=== PATIENT | male | born 1985 | race Caucasian/White ===

== ENCOUNTER 2017-11-20 20:58 | Emergency (ER) | payer SELFPAY ==
[~2017-11-20] VITALS: Ht 182.9 cm; Wt 78.0 kg
[~2017-11-20 20:58] MED LIST: CEPHALEXIN500 MG OR; CIPRO500 MG PO; FIORICET PO; FLEXERIL PO; FLEXERIL10 MG OR; FLEXERIL10 MG PO; LORTAB 7.5 OR; NAPROSYN500 MG PO; NO HOME MEDS; PROAIR HFA IN; QVAR40 MCG IN; SOLU-MEDROL125 MG IM; ULTRAM50 M1 PO
[2017-11-20] MEDS ORDERED: PERCOCET 5/325M1 TAB PO (23:19)
[2017-11-20] MEDS ORDERED: GENTAMICIN0.31 OU (23:19)
[2017-11-21 00:38] VITALS: BP 140/85
== END 2017-11-21 00:38 | disposition home or self-care (01) | DRG 125 ==
LOC: ED 20:58
DX: H10.33 Unspecified acute conjunctivitis, bilateral (principal); H53.8 Other visual disturbances; H57.13 Ocular pain, bilateral; W89.0XXA Exposure to welding light (arc), initial encounter; Y92.89 Other specified places as the place of occurrence of the external cause

== ENCOUNTER 2018-03-18 23:08 | Emergency (ER) | payer SELFPAY ==
[~2018-03-18] VITALS: Ht 182.9 cm; Wt 80.9 kg
[~2018-03-18 23:08] MED LIST changes: +GENTAMICIN0.31 OU; +PERCOCET 5/325M1 TAB PO
[2018-03-18] MEDS ORDERED: SILVADENE1 % EX (23:50)
[2018-03-18] MEDS ORDERED: TYLENOL # 31 TA1 PO (23:50)
[2018-03-19 00:18] VITALS: BP 126/82
== END 2018-03-19 00:30 | disposition home or self-care (01) | DRG 935 ==
LOC: ED 23:08
PROC: 2W24X4Z Dressing of Chest Wall using Bandage (ICD-10-PCS; principal; 2018-03-18)
PROC: 2W29X4Z Dressing of Left Upper Extremity using Bandage (ICD-10-PCS; 2018-03-18)
PROC: 2W21X4Z Dressing of Face using Bandage (ICD-10-PCS; 2018-03-18)
DX: T21.21XA Burn of second degree of chest wall, initial encounter (principal); T20.19XA Burn of first degree of multiple sites of head, face, and neck, initial encounter; T22.10XA Burn of first degree of shoulder and upper limb, except wrist and hand, unspecified site, initial encounter; F17.210 Nicotine dependence, cigarettes, uncomplicated; X12.XXXA Contact with other hot fluids, initial encounter; Y93.89 Activity, other specified; Y92.009 Unspecified place in unspecified non-institutional (private) residence as the place of occurrence of the external cause

== ENCOUNTER 2018-12-18 19:52 | Inpatient (IN) | payer SELFPAY ==
[~2018-12-18] VITALS: Ht 182.9 cm; Wt 74.0 kg
[~2018-12-18 19:52] MED LIST changes: +SILVADENE1 % EX; +TYLENOL # 31 TA1 PO
[2018-12-18 21:29] LABS: HEMATOCRIT 34.2 % (39.0-50.0); HEMOGLOBIN 12.1 g/dl (14.0-18.0); IMMATURE GRANULOCYTES 0.9 % (0.0-5.0); MEAN CELL VOLUME 91.4 fL CALC (80.0-100.0); MEAN CORPUSCULAR HGB 32.4 pG CALC (26.0-32.0); MEAN CORPUSCULAR HGB CONC 35.4 g/L CALC (32.0-36.0); NEUT# 6.98 thou/uL (1.82-7.42); RED BLOOD COUNT 3.74 mill/uL (4.70-6.10); RED CELL DISTRI WIDTH 11.9 % (11.5-15.5)
[2018-12-18 21:41] LABS: ALBUMIN 3.7 g/dL (3.2-5.0); ALKALINE PHOSPHATASE 79 u/l (38-126); ANION GAP 13 (6-22 (CALC)); BILIRUBIN, TOTAL 0.5 mg/dL (0.0-1.4); BUN 12 mg/dL (9-20); BUN/CREATININE RATIO 18 (12-20 (CALC)); CARBON DIOXIDE 30 mmol/l (22-30); CHLORIDE 98 mmol/l (95-108); CREATININE 0.7 mg/dL (0.7-1.3); GFR > 60 ML/MIN (>=60 (CALC)); GFR FOR AFR.AMER. > 60 ML/MIN (>=60 (CALC)); POTASSIUM 4.2 mmol/l (3.5-5.1); SGOT/AST 74 u/l (17-59); SODIUM 137 mmol/l (137-146); TOTAL PROTEIN 7.3 g/dL (6.3-8.2)
[2018-12-18 23:22] LABS: BARBITURATES NEGATIVE (NEGATIVE); COCAINE NEGATIVE (NEGATIVE); METHADONE NEGATIVE (NEGATIVE); TETRAHYDROCANNABIONOL NEGATIVE (NEGATIVE); TRICYLIC ANTIDEPRESSANTS NEGATIVE (NEGATIVE)
[2018-12-18 23:23] LABS: OXCYCODONE POSITIVE (NEGATIVE)
[2018-12-19] VITALS (11 sets, daily range): BP systolic 126–147; BP diastolic 70–89
[2018-12-19 05:58] LABS: HEMATOCRIT 32.8 % (39.0-50.0); HEMOGLOBIN 11.5 g/dl (14.0-18.0); IMMATURE GRANULOCYTES 0.6 % (0.0-5.0); MEAN CELL VOLUME 93.4 fL CALC (80.0-100.0); MEAN CORPUSCULAR HGB 32.8 pG CALC (26.0-32.0); MEAN CORPUSCULAR HGB CONC 35.1 g/L CALC (32.0-36.0); NEUT# 7.74 thou/uL (1.82-7.42); RED BLOOD COUNT 3.51 mill/uL (4.70-6.10)
[2018-12-19 06:18] LABS: ALBUMIN 3.1 g/dL (3.2-5.0); ALKALINE PHOSPHATASE 71 u/l (38-126); ANION GAP 13 (6-22 (CALC)); BILIRUBIN, TOTAL 0.6 mg/dL (0.0-1.4); BUN 9 mg/dL (9-20); BUN/CREATININE RATIO 15 (12-20 (CALC)); CARBON DIOXIDE 26 mmol/l (22-30); CHLORIDE 102 mmol/l (95-108); CREATININE 0.6 mg/dL (0.7-1.3); GFR > 60 ML/MIN (>=60 (CALC)); GFR FOR AFR.AMER. > 60 ML/MIN (>=60 (CALC)); SGOT/AST 58 u/l (17-59); SODIUM 136 mmol/l (137-146); TOTAL PROTEIN 6.4 g/dL (6.3-8.2)
[2018-12-20 04:49] VITALS: BP 136/85
[2018-12-20 05:31] LABS: HEMATOCRIT 31.9 % (39.0-50.0); MEAN CELL VOLUME 94.4 fL CALC (80.0-100.0); MEAN CORPUSCULAR HGB 32.5 pG CALC (26.0-32.0); MEAN CORPUSCULAR HGB CONC 34.5 g/L CALC (32.0-36.0); RED BLOOD COUNT 3.38 mill/uL (4.70-6.10); RED CELL DISTRI WIDTH 12.2 % (11.5-15.5)
[2018-12-20 05:47] LABS: ANION GAP 13 (6-22 (CALC)); BUN 3 mg/dL (9-20); BUN/CREATININE RATIO 6 (12-20 (CALC)); CARBON DIOXIDE 24 mmol/l (22-30); CHLORIDE 106 mmol/l (95-108); CREATININE 0.5 mg/dL (0.7-1.3); GFR > 60 ML/MIN (>=60 (CALC)); GFR FOR AFR.AMER. > 60 ML/MIN (>=60 (CALC)); MAGNESIUM 1.9 mg/dL (1.6-2.3); SODIUM 139 mmol/l (137-146)
[2018-12-20 08:08] VITALS: BP 121/79
[2018-12-20 17:08] VITALS: BP 140/89
[2018-12-20 18:59] VITALS: BP 119/72
[2018-12-21] VITALS (10 sets, daily range): BP systolic 126–166; BP diastolic 75–102
[2018-12-22 00:01] VITALS: BP 150/90
[2018-12-22 04:13] VITALS: BP 143/81
[2018-12-22 05:33] LABS: HEMATOCRIT 32.6 % (39.0-50.0); HEMOGLOBIN 11.2 g/dl (14.0-18.0); IMMATURE GRANULOCYTES 0.9 % (0.0-5.0); MEAN CORPUSCULAR HGB 32.7 pG CALC (26.0-32.0); MEAN CORPUSCULAR HGB CONC 34.4 g/L CALC (32.0-36.0); NEUT# 5.76 thou/uL (1.82-7.42); RED BLOOD COUNT 3.43 mill/uL (4.70-6.10); RED CELL DISTRI WIDTH 12.2 % (11.5-15.5)
[2018-12-22 05:58] LABS: ALBUMIN 2.9 g/dL (3.2-5.0); ALKALINE PHOSPHATASE 54 u/l (38-126); ANION GAP 11 (6-22 (CALC)); BILIRUBIN, TOTAL 0.4 mg/dL (0.0-1.4); BUN 6 mg/dL (9-20); BUN/CREATININE RATIO 10 (12-20 (CALC)); CARBON DIOXIDE 25 mmol/l (22-30); CHLORIDE 104 mmol/l (95-108); CREATININE 0.6 mg/dL (0.7-1.3); GFR > 60 ML/MIN (>=60 (CALC)); GFR FOR AFR.AMER. > 60 ML/MIN (>=60 (CALC)); MAGNESIUM 1.8 mg/dL (1.6-2.3); SGOT/AST 79 u/l (17-59); SODIUM 136 mmol/l (137-146); TOTAL PROTEIN 6.1 g/dL (6.3-8.2)
[2018-12-22 09:24] VITALS: BP 141/95
[2018-12-22 17:41] VITALS: BP 154/80
[2018-12-22 20:04] VITALS: BP 151/97
[2018-12-23 00:17] VITALS: BP 149/90
[2018-12-23 04:19] VITALS: BP 139/81
== END 2018-12-23 06:40 | disposition left against medical advice (07) | DRG 579 ==
LOC: ED 19:52 → ED-I 22:18 → ED 22:42 → MS2 22:43
PROVIDERS: Emergency Medicine; Internal Medicine Nephrology; Nurse Practitioner Family; Podiatrist Foot & Ankle Surgery; ADMIT Internal Medicine; ATTEND Internal Medicine
PROC: 0J9Q0ZZ Drainage of Right Foot Subcutaneous Tissue and Fascia, Open Approach (ICD-10-PCS; principal; 2018-12-18)
PROC: 0JDQ0ZZ Extraction of Right Foot Subcutaneous Tissue and Fascia, Open Approach (ICD-10-PCS; 2018-12-18)
PROC: 0JQQ0ZZ Repair Right Foot Subcutaneous Tissue and Fascia, Open Approach (ICD-10-PCS; 2018-12-21)
PROC: 02HV33Z Insertion of Infusion Device into Superior Vena Cava, Percutaneous Approach (ICD-10-PCS; 2018-12-21)
PROC: B518ZZA Fluoroscopy of Superior Vena Cava, Guidance (ICD-10-PCS; 2018-12-21)
DX: L02.611 Cutaneous abscess of right foot (principal); M72.6 Necrotizing fasciitis; L03.115 Cellulitis of right lower limb; T79.7XXA Traumatic subcutaneous emphysema, initial encounter; L97.519 Non-pressure chronic ulcer of other part of right foot with unspecified severity; R79.89 Other specified abnormal findings of blood chemistry; T36.0X5A Adverse effect of penicillins, initial encounter; D64.9 Anemia, unspecified; I10 Essential (primary) hypertension; F17.210 Nicotine dependence, cigarettes, uncomplicated; F10.10 Alcohol abuse, uncomplicated; B96.89 Other specified bacterial agents as the cause of diseases classified elsewhere; X58.XXXA Exposure to other specified factors, initial encounter
CPT/HCPCS: J0131; J1650; J3370; Q9967

== ENCOUNTER 2020-04-12 21:41 | Emergency (ER) | payer SELFPAY ==
[~2020-04-12] VITALS: Ht 182.9 cm; Wt 86.0 kg
[2020-04-12 22:48] LABS: HEMATOCRIT 34.7 % (39.0-50.0); HEMOGLOBIN 11.6 g/dl (14.0-18.0); IMMATURE GRANULOCYTES 0.8 % (0.0-5.0); MEAN CELL VOLUME 95.1 fL CALC (80.0-100.0); MEAN CORPUSCULAR HGB 31.8 pG CALC (26.0-32.0); MEAN CORPUSCULAR HGB CONC 33.4 g/dL CAL (32.0-36.0); NEUT# 7.62 thou/uL (1.82-7.42); RED BLOOD COUNT 3.65 mill/uL (4.70-6.10); RED CELL DISTRI WIDTH 13.1 % (11.5-15.5)
[2020-04-12 23:13] LABS: ALKALINE PHOSPHATASE 71 u/l (38-126); ANION GAP 14 (6-22 (CALC)); BILIRUBIN, TOTAL 0.5 mg/dL (0.0-1.4); BUN 11 mg/dL (9-20); BUN/CREATININE RATIO 14 (12-20 (CALC)); CARBON DIOXIDE 24 mmol/l (22-30); CHLORIDE 99 mmol/l (95-108); CREATININE 0.8 mg/dL (0.7-1.3); GFR > 60 ML/MIN (>=60 (CALC)); GFR FOR AFR.AMER. > 60 ML/MIN (>=60 (CALC)); POTASSIUM 4.1 mmol/l (3.5-5.1); SGOT/AST 59 u/l (17-59); SODIUM 133 mmol/l (137-146)
[2020-04-12 23:31] LABS: ALBUMIN 4.1 g/dL (3.2-5.0); TOTAL PROTEIN 7.9 g/dL (6.3-8.2)
[2020-04-12 23:47] VITALS: BP 140/79
[2020-04-13] MEDS ORDERED: KEFLEX500 M1 PO (00:08)
[2020-04-14] MEDS ORDERED: DOXYCYCL HYC100 MG PO (22:25)
[2020-04-14] MEDS ORDERED: VOLTAREN75 MG PO (22:25)
== END 2020-04-13 00:17 | disposition home or self-care (01) | DRG 603 ==
LOC: ED 21:41
PROVIDERS: Family Medicine
DX: L03.113 Cellulitis of right upper limb (principal); F17.210 Nicotine dependence, cigarettes, uncomplicated

== ENCOUNTER 2020-04-14 20:42 | Emergency (ER) | payer SELFPAY ==
[~2020-04-14] VITALS: Ht 182.9 cm; Wt 81.0 kg
[~2020-04-14 20:42] MED LIST changes: +KEFLEX500 M1 PO
[2020-04-14 21:38] LABS: HEMATOCRIT 33.1 % (39.0-50.0); HEMOGLOBIN 11.2 g/dl (14.0-18.0); IMMATURE GRANULOCYTES 0.7 % (0.0-5.0); MEAN CELL VOLUME 94.8 fL CALC (80.0-100.0); MEAN CORPUSCULAR HGB 32.1 pG CALC (26.0-32.0); MEAN CORPUSCULAR HGB CONC 33.8 g/dL CAL (32.0-36.0); NEUT# 6.17 thou/uL (1.82-7.42); RED BLOOD COUNT 3.49 mill/uL (4.70-6.10); RED CELL DISTRI WIDTH 13.2 % (11.5-15.5)
[2020-04-14 21:51] LABS: ALBUMIN 3.8 g/dL (3.2-5.0); ALKALINE PHOSPHATASE 73 u/l (38-126); ANION GAP 14 (6-22 (CALC)); BILIRUBIN, TOTAL 0.2 mg/dL (0.0-1.4); BUN 15 mg/dL (9-20); BUN/CREATININE RATIO 23 (12-20 (CALC)); CARBON DIOXIDE 21 mmol/l (22-30); CHLORIDE 103 mmol/l (95-108); CREATININE 0.7 mg/dL (0.7-1.3); GFR > 60 ML/MIN (>=60 (CALC)); GFR FOR AFR.AMER. > 60 ML/MIN (>=60 (CALC)); POTASSIUM 3.6 mmol/l (3.5-5.1); SGOT/AST 68 u/l (17-59); SODIUM 134 mmol/l (137-146); TOTAL PROTEIN 7.5 g/dL (6.3-8.2)
[2020-04-14 22:01] LABS: ACT PARTIAL THROMBO TIME 25.4 SECONDS (20.0-32.5); PROTHROMBIN TIME 10.2 SECONDS (9.0-12.5)
[2020-04-14] MEDS ORDERED: DOXYCYCL HYC100 MG PO (22:25)
[2020-04-14] MEDS ORDERED: VOLTAREN75 MG PO (22:25)
[2020-04-14 23:04] VITALS: BP 144/68
== END 2020-04-14 23:15 | disposition home or self-care (01) | DRG 603 ==
LOC: ED 20:42
PROVIDERS: Family Medicine
DX: L03.113 Cellulitis of right upper limb (principal); F17.210 Nicotine dependence, cigarettes, uncomplicated

== ENCOUNTER 2020-04-16 21:48 | Emergency (ER) | payer SELFPAY ==
[~2020-04-16] VITALS: Ht 182.9 cm; Wt 86.0 kg
[~2020-04-16 21:48] MED LIST changes: +DOXYCYCL HYC100 MG PO; +VOLTAREN75 MG PO
[2020-04-16 23:17] LABS: HEMATOCRIT 33.7 % (39.0-50.0); HEMOGLOBIN 11.2 g/dl (14.0-18.0); IMMATURE GRANULOCYTES 1.8 % (0.0-5.0); MEAN CELL VOLUME 95.5 fL CALC (80.0-100.0); MEAN CORPUSCULAR HGB 31.7 pG CALC (26.0-32.0); MEAN CORPUSCULAR HGB CONC 33.2 g/dL CAL (32.0-36.0); NEUT# 12.31 thou/uL (1.82-7.42); RED BLOOD COUNT 3.53 mill/uL (4.70-6.10); RED CELL DISTRI WIDTH 13.2 % (11.5-15.5)
[2020-04-16 23:47] LABS: ALBUMIN 3.7 g/dL (3.2-5.0); ALKALINE PHOSPHATASE 66 u/l (38-126); ANION GAP 11 (6-22 (CALC)); BUN 15 mg/dL (9-20); BUN/CREATININE RATIO 30 (12-20 (CALC)); CARBON DIOXIDE 24 mmol/l (22-30); CHLORIDE 98 mmol/l (95-108); CREATININE 0.5 mg/dL (0.7-1.3); GFR > 60 ML/MIN (>=60 (CALC)); GFR FOR AFR.AMER. > 60 ML/MIN (>=60 (CALC)); POTASSIUM 3.4 mmol/l (3.5-5.1); SGOT/AST 51 u/l (17-59); SODIUM 129 mmol/l (137-146); TOTAL PROTEIN 7.5 g/dL (6.3-8.2)
[2020-04-16 23:55] LABS: BILIRUBIN, TOTAL 0.5 mg/dL (0.0-1.4)
[2020-04-17 00:58] VITALS: BP 142/71
== END 2020-04-17 00:58 | disposition left against medical advice (07) | DRG 603 ==
LOC: ED 21:48
PROVIDERS: Family Medicine
DX: L03.113 Cellulitis of right upper limb (principal); F17.200 Nicotine dependence, unspecified, uncomplicated

== ENCOUNTER 2021-06-15 18:16 | Emergency (ER) | payer SELFPAY ==
[~2021-06-15] VITALS: Ht 182.9 cm; Wt 97.0 kg
[2021-06-15 20:32] VITALS: BP 154/87
== END 2021-06-15 20:32 | disposition home or self-care (01) | DRG 605 ==
LOC: ED 18:16
DX: S00.03XA Contusion of scalp, initial encounter (principal); S00.01XA Abrasion of scalp, initial encounter; F17.210 Nicotine dependence, cigarettes, uncomplicated; W22.09XA Striking against other stationary object, initial encounter; Y93.89 Activity, other specified; Y92.89 Other specified places as the place of occurrence of the external cause; Y99.0 Civilian activity done for income or pay

== ENCOUNTER 2021-11-29 14:13 | Emergency (ER) | payer SELFPAY ==
[~2021-11-29] VITALS: Ht 182.9 cm; Wt 115.0 kg
[2021-11-29 14:25] VITALS: BP 153/105
[2021-11-29 15:18] LABS: IMMATURE GRANULOCYTES 0.8 % (0.0-5.0); MEAN CORPUSCULAR HGB 36.4 pG CALC (26.0-32.0); MEAN CORPUSCULAR HGB CONC 33.9 g/dL CAL (32.0-36.0); NEUT# 5.45 thou/uL (1.82-7.42); RED BLOOD COUNT 3.79 mill/uL (4.70-6.10); RED CELL DISTRI WIDTH 12.4 % (11.5-15.5)
[2021-11-29 15:19] LABS: HEMATOCRIT 40.7 % (39.0-50.0); HEMOGLOBIN 13.8 g/dl (14.0-18.0); MEAN CELL VOLUME 107.4 fL CALC (80.0-100.0)
[2021-11-29 15:23] LABS: ALBUMIN 3.9 g/dL (3.2-5.0); ALKALINE PHOSPHATASE 91 u/l (38-126); BUN 3 mg/dL (9-20); BUN/CREATININE RATIO 6 (12-20 (CALC)); CARBON DIOXIDE 27 mmol/l (22-30); CHLORIDE 104 mmol/l (95-108); CREATININE 0.6 mg/dL (0.7-1.3); GFR > 60 ML/MIN (>=60 (CALC)); GFR FOR AFR.AMER. > 60 ML/MIN (>=60 (CALC)); POTASSIUM 3.6 mmol/l (3.5-5.1); TOTAL PROTEIN 8.2 g/dL (6.3-8.2)
[2021-11-29 15:31] VITALS: BP 130/78
[2021-11-29 15:31] LABS: ANION GAP 14 (6-22 (CALC)); BILIRUBIN, TOTAL 0.8 mg/dL (0.0-1.4); SGOT/AST 142 u/l (17-59); SODIUM 141 mmol/l (137-146)
[2021-11-29 15:32] LABS: ETHYL ALCOHOL 373 mg/dl (0-30)
[2021-11-29 16:01] VITALS: BP 132/97
[2021-11-29 16:25] LABS: URINE BILIRUBIN - DIPSTICK NEGATIVE (NEGATIVE); URINE BLOOD DIPSTICK NEGATIVE (NEGATIVE); URINE COLOR YELLOW; URINE GLUCOSE - DIPSTICK NEGATIVE (NEGATIVE); URINE KETONE NEGATIVE (NEGATIVE); URINE LEUK ESTERASE NEGATIVE (NEGATIVE); URINE PROTEIN - DIPSTICK NEGATIVE (NEG-TRACE); URINE UROBILINOGEN - DIPSTICK 0.2 E.U./dL (0.2)
[2021-11-29] MEDS ORDERED: DOXYCYCLINE100 MG PO (16:26)
[2021-11-29 16:27] LABS: URINE NITRITE - DIPSTICK NEGATIVE (Negative)
[2021-11-29 16:31] VITALS: BP 140/85
[2021-11-29] MEDS ORDERED: MEDDOSEPAK PO (16:34)
[2021-11-29 16:48] VITALS: BP 140/85
== END 2021-11-29 16:57 | disposition home or self-care (01) | DRG 603 ==
LOC: ED 14:13
PROVIDERS: Nurse Practitioner
DX: L03.116 Cellulitis of left lower limb (principal); F17.200 Nicotine dependence, unspecified, uncomplicated; F10.129 Alcohol abuse with intoxication, unspecified; Y90.8 Blood alcohol level of 240 mg/100 ml or more

== ENCOUNTER 2021-12-16 14:45 | Observation (INO) | payer SELFPAY ==
[~2021-12-16] VITALS: Ht 182.9 cm; Wt 102.0 kg
[2021-12-16] VITALS (13 sets, daily range): BP systolic 132–178; BP diastolic 83–112
[~2021-12-16 14:45] MED LIST changes: +DOXYCYCLINE100 MG PO; +MEDDOSEPAK PO
[2021-12-16 16:48] LABS: HEMATOCRIT 39.3 % (39.0-50.0); HEMOGLOBIN 13.6 g/dl (14.0-18.0); IMMATURE GRANULOCYTES 0.3 % (0.0-5.0); MEAN CELL VOLUME 104.8 fL CALC (80.0-100.0); MEAN CORPUSCULAR HGB 36.3 pG CALC (26.0-32.0); MEAN CORPUSCULAR HGB CONC 34.6 g/dL CAL (32.0-36.0); NEUT# 6.68 thou/uL (1.82-7.42); RED BLOOD COUNT 3.75 mill/uL (4.70-6.10); RED CELL DISTRI WIDTH 12.9 % (11.5-15.5)
[2021-12-16 17:34] LABS: ACT PARTIAL THROMBO TIME 25.8 SECONDS (20.0-32.5); INTERNATIONAL NORMALIZED RATIO 1.2 RATIO (0.7-1.3); PROTHROMBIN TIME 12.2 SECONDS (9.0-12.5)
[2021-12-16 17:39] LABS: ALBUMIN 4.3 g/dL (3.2-5.0); ALKALINE PHOSPHATASE 95 u/l (38-126); ANION GAP 17 (6-22 (CALC)); BILIRUBIN, TOTAL 0.9 mg/dL (0.0-1.4); BUN 4 mg/dL (9-20); BUN/CREATININE RATIO 7 (12-20 (CALC)); CARBON DIOXIDE 27 mmol/l (22-30); CHLORIDE 105 mmol/l (95-108); CREATININE 0.6 mg/dL (0.7-1.3); GFR > 60 ML/MIN (>=60 (CALC)); GFR FOR AFR.AMER. > 60 ML/MIN (>=60 (CALC)); POTASSIUM 4.3 mmol/l (3.5-5.1); SGOT/AST 167 u/l (17-59); SODIUM 145 mmol/l (137-146); TOTAL PROTEIN 8.1 g/dL (6.3-8.2)
[2021-12-16 17:55] LABS: ETHYL ALCOHOL 317 mg/dl (0-30)
[2021-12-17 04:47] VITALS: BP 160/94
[2021-12-17 05:25] LABS: HEMATOCRIT 38.9 % (39.0-50.0); HEMOGLOBIN 13.4 g/dl (14.0-18.0); MEAN CELL VOLUME 105.7 fL CALC (80.0-100.0); MEAN CORPUSCULAR HGB 36.4 pG CALC (26.0-32.0); MEAN CORPUSCULAR HGB CONC 34.4 g/dL CAL (32.0-36.0); RED BLOOD COUNT 3.68 mill/uL (4.70-6.10); RED CELL DISTRI WIDTH 12.9 % (11.5-15.5)
[2021-12-17 06:06] LABS: ANION GAP 13 (6-22 (CALC)); BUN 4 mg/dL (9-20); BUN/CREATININE RATIO 7 (12-20 (CALC)); CARBON DIOXIDE 27 mmol/l (22-30); CHLORIDE 103 mmol/l (95-108); CREATININE 0.6 mg/dL (0.7-1.3); GFR > 60 ML/MIN (>=60 (CALC)); GFR FOR AFR.AMER. > 60 ML/MIN (>=60 (CALC)); MAGNESIUM 1.6 mg/dL (1.6-2.3); POTASSIUM 3.6 mmol/l (3.5-5.1); SODIUM 139 mmol/l (137-146)
[2021-12-17 09:06] VITALS: BP 172/102
[2021-12-17 10:22] VITALS: BP 160/95
[2021-12-17] MEDS ORDERED: MULTIVITAMI9 PO (11:00)
[2021-12-17 15:22] VITALS: BP 165/102
[2021-12-17 18:56] VITALS: BP 156/91
[2021-12-18 00:20] VITALS: BP 151/92
[2021-12-18 04:40] VITALS: BP 143/93
[2021-12-18 05:16] LABS: HEMATOCRIT 36.5 % (39.0-50.0); HEMOGLOBIN 12.4 g/dl (14.0-18.0); IMMATURE GRANULOCYTES 0.4 % (0.0-5.0); MEAN CELL VOLUME 106.4 fL CALC (80.0-100.0); MEAN CORPUSCULAR HGB 36.2 pG CALC (26.0-32.0); NEUT# 5.6 thou/uL (1.82-7.42); RED BLOOD COUNT 3.43 mill/uL (4.70-6.10); RED CELL DISTRI WIDTH 12.9 % (11.5-15.5)
[2021-12-18 05:44] LABS: ALBUMIN 3.5 g/dL (3.2-5.0); ALKALINE PHOSPHATASE 85 u/l (38-126); ANION GAP 11 (6-22 (CALC)); BUN 4 mg/dL (9-20); BUN/CREATININE RATIO 8 (12-20 (CALC)); CARBON DIOXIDE 25 mmol/l (22-30); CHLORIDE 103 mmol/l (95-108); CREATININE 0.5 mg/dL (0.7-1.3); GFR > 60 ML/MIN (>=60 (CALC)); GFR FOR AFR.AMER. > 60 ML/MIN (>=60 (CALC)); MAGNESIUM 1.5 mg/dL (1.6-2.3); SGOT/AST 80 u/l (17-59); SODIUM 136 mmol/l (137-146); TOTAL PROTEIN 6.9 g/dL (6.3-8.2)
[2021-12-18 05:47] LABS: BILIRUBIN, TOTAL 1.4 mg/dL (0.0-1.4)
[2021-12-18 07:54] VITALS: BP 159/110
== END 2021-12-18 08:51 | disposition left against medical advice (07) | DRG 603 ==
LOC: ED 14:45 → ED-I 17:06 → ED 18:24 → MS2 18:25
PROVIDERS: Nurse Practitioner; ADMIT Internal Medicine; ATTEND Internal Medicine
DX: L03.116 Cellulitis of left lower limb (principal); F10.129 Alcohol abuse with intoxication, unspecified; I10 Essential (primary) hypertension; J41.0 Simple chronic bronchitis; F17.210 Nicotine dependence, cigarettes, uncomplicated
CPT/HCPCS: G0378; J1650; J2060; J3370; J3475

== ENCOUNTER 2022-02-06 17:45 | Emergency (ER) | payer SELFPAY ==
[2022-02-06] VITALS (12 sets, daily range): BP systolic 112–146; BP diastolic 71–96
[~2022-02-06] VITALS: Ht 185.4 cm; Wt 115.0 kg
[~2022-02-06 17:45] MED LIST changes: +MULTIVITAMI9 PO
[2022-02-06 19:02] LABS: HEMATOCRIT 38.4 % (39.0-50.0); HEMOGLOBIN 13.3 g/dl (14.0-18.0); IMMATURE GRANULOCYTES 0.3 % (0.0-5.0); MEAN CELL VOLUME 104.1 fL CALC (80.0-100.0); MEAN CORPUSCULAR HGB CONC 34.6 g/dL CAL (32.0-36.0); NEUT# 6.37 thou/uL (1.82-7.42); RED BLOOD COUNT 3.69 mill/uL (4.70-6.10); RED CELL DISTRI WIDTH 14.9 % (11.5-15.5)
[2022-02-06 19:04] LABS: URINE BLOOD DIPSTICK TRACE-LYSED (NEGATIVE); URINE GLUCOSE - DIPSTICK 250 mg/dL (NEGATIVE); URINE KETONE TRACE mg/dL (NEGATIVE); URINE LEUK ESTERASE NEGATIVE (NEGATIVE); URINE PH 5.5 (4.5-8.0); URINE PROTEIN - DIPSTICK 100 mg/dL (NEG-TRACE); URINE SPECIFIC GRAVITY >=1.030; URINE UROBILINOGEN - DIPSTICK >=8.0 E.U./dL (0.2)
[2022-02-06 19:06] LABS: URINE COLOR AMBER
[2022-02-06 19:08] LABS: URINE BILIRUBIN - DIPSTICK LARGE (NEGATIVE)
[2022-02-06 19:09] LABS: URINE NITRITE - DIPSTICK POSITIVE (Negative)
[2022-02-06 19:17] LABS: URINE BACTERIA RARE hpf; URINE SQUAMOUS EPITHELIAL CELL FEW EPI/hpf (0-FEW)
[2022-02-06 19:23] LABS: ALBUMIN 3.6 g/dL (3.2-5.0); ANION GAP 17 (6-22 (CALC)); BUN 4 mg/dL (9-20); BUN/CREATININE RATIO 6 (12-20 (CALC)); CARBON DIOXIDE 23 mmol/l (22-30); CHLORIDE 104 mmol/l (95-108); CREATININE 0.7 mg/dL (0.7-1.3); GFR FOR AFR.AMER. > 60 ML/MIN (>=60 (CALC)); GFR OTHER RACES > 60 ML/MIN (>=60 (CALC)); LIPASE 371 u/l (23-300); POTASSIUM 3.6 mmol/l (3.5-5.1); SODIUM 141 mmol/l (137-146); TOTAL PROTEIN 8.1 g/dL (6.3-8.2)
[2022-02-06 19:24] LABS: ALKALINE PHOSPHATASE 167 u/l (38-126); BILIRUBIN, TOTAL 2.9 mg/dL (0.0-1.4); SGOT/AST 313 u/l (17-59)
[2022-02-06 19:25] LABS: INTERNATIONAL NORMALIZED RATIO 1.3 RATIO (0.7-1.3); PROTHROMBIN TIME 13.6 SECONDS (9.0-12.5)
[2022-02-07] VITALS (13 sets, daily range): BP systolic 99–145; BP diastolic 55–93
[2022-02-07] MEDS ORDERED: PREVACID30 M3 PO (05:09)
== END 2022-02-07 05:58 | disposition home or self-care (01) | DRG 897 ==
LOC: ED 17:45
PROVIDERS: Family Medicine
DX: F10.10 Alcohol abuse, uncomplicated (principal); F17.200 Nicotine dependence, unspecified, uncomplicated; Y90.6 Blood alcohol level of 120-199 mg/100 ml; Z20.822 Contact with and (suspected) exposure to COVID-19
CPT/HCPCS: J2354; Q9967; S0164

== ENCOUNTER 2022-03-06 16:33 | Emergency (ER) | payer SELFPAY ==
[~2022-03-06] VITALS: Ht 185.4 cm; Wt 109.0 kg
[~2022-03-06 16:33] MED LIST changes: +PREVACID30 M3 PO
[2022-03-06 17:23] LABS: HEMOGLOBIN 12.2 g/dl (14.0-18.0); IMMATURE GRANULOCYTES 0.5 % (0.0-5.0); MEAN CORPUSCULAR HGB CONC 35.9 g/dL CAL (32.0-36.0); NEUT# 6.76 thou/uL (1.82-7.42); RED BLOOD COUNT 3.3 mill/uL (4.70-6.10); RED CELL DISTRI WIDTH 15.2 % (11.5-15.5)
[2022-03-06 17:37] LABS: ALBUMIN 3.4 g/dL (3.2-5.0); ALKALINE PHOSPHATASE 155 u/l (38-126); ANION GAP 16 (6-22 (CALC)); BILIRUBIN, TOTAL 2.2 mg/dL (0.0-1.4); BUN 3 mg/dL (9-20); BUN/CREATININE RATIO 5 (12-20 (CALC)); CARBON DIOXIDE 22 mmol/l (22-30); CHLORIDE 101 mmol/l (95-108); CREATININE 0.5 mg/dL (0.7-1.3); GFR FOR AFR.AMER. > 60 ML/MIN (>=60 (CALC)); GFR OTHER RACES > 60 ML/MIN (>=60 (CALC)); LIPASE 482 u/l (23-300); POTASSIUM 3.3 mmol/l (3.5-5.1); SGOT/AST 136 u/l (17-59); SODIUM 135 mmol/l (137-146); TOTAL PROTEIN 7.9 g/dL (6.3-8.2)
[2022-03-06 17:48] LABS: INTERNATIONAL NORMALIZED RATIO 1.4 RATIO (0.7-1.3); PROTHROMBIN TIME 14.1 SECONDS (9.0-12.5)
[2022-03-06 20:46] VITALS: BP 157/102
== END 2022-03-06 20:54 | disposition short-term general hospital (02) | DRG 445 ==
LOC: ED 16:33
PROVIDERS: Nurse Practitioner
DX: K81.0 Acute cholecystitis (principal); K72.90 Hepatic failure, unspecified without coma; F10.139 Alcohol abuse with withdrawal, unspecified; I10 Essential (primary) hypertension; F19.10 Other psychoactive substance abuse, uncomplicated; F17.200 Nicotine dependence, unspecified, uncomplicated; Z20.822 Contact with and (suspected) exposure to COVID-19
CPT/HCPCS: J2060; Q9967

== ENCOUNTER 2022-08-25 14:43 | Emergency (ER) | payer SELFPAY ==
[~2022-08-25] VITALS: Ht 185.4 cm; Wt 98.8 kg
[2022-08-25] VITALS (9 sets, daily range): BP systolic 101–128; BP diastolic 51–74
[2022-08-25 15:38] LABS: BASO% 0.2 % (0-3); EOS% 1.1 % (0-8); HEMATOCRIT 28.5 % (39.0-50.0); HEMOGLOBIN 11.3 g/dl (14.0-18.0); IMMATURE GRANULOCYTES 4.4 % (0.0-5.0); LYMPH% 6.3 % (15-41); MEAN CORPUSCULAR HGB 37.8 pG CALC (26.0-32.0); MEAN CORPUSCULAR HGB CONC 39.6 g/dL CAL (32.0-36.0); MONO% 14.3 % (2-13); NEUT# 9.02 thou/uL (1.82-7.42); NEUT% 73.7 % (42-76); RED BLOOD COUNT 2.99 mill/uL (4.70-6.10); RED CELL DISTRI WIDTH 15.8 % (11.5-15.5)
[2022-08-25 15:41] LABS: MEAN CELL VOLUME 95.3 fL CALC (80.0-100.0)
[2022-08-25 15:45] LABS: ALBUMIN 3.1 g/dL (3.2-5.0); ALKALINE PHOSPHATASE 123 u/l (38-126); BUN 19 mg/dL (9-20); BUN/CREATININE RATIO 22 (12-20 (CALC)); CHLORIDE 92 mmol/l (95-108); CREATININE 0.9 mg/dL (0.7-1.3); GFR FOR AFR.AMER. > 60 ML/MIN (>=60 (CALC)); GFR OTHER RACES > 60 ML/MIN (>=60 (CALC)); LIPASE 285 u/l (23-300); SGOT/AST 200 u/l (17-59); TOTAL PROTEIN 7.7 g/dL (6.3-8.2)
[2022-08-25 15:55] LABS: SODIUM 128 mmol/l (137-146)
[2022-08-25 15:56] LABS: ANION GAP 9 (6-22 (CALC)); CARBON DIOXIDE 30 mmol/l (22-30)
[2022-08-25 15:57] LABS: BILIRUBIN, TOTAL 19.1 mg/dL (0.0-1.4)
== END 2022-08-25 17:40 | disposition short-term general hospital (02) | DRG 149 ==
LOC: ED 14:43
PROVIDERS: Family Medicine
DX: R42 Dizziness and giddiness (principal); K81.0 Acute cholecystitis; J44.9 Chronic obstructive pulmonary disease, unspecified; F17.210 Nicotine dependence, cigarettes, uncomplicated; K70.30 Alcoholic cirrhosis of liver without ascites; E80.6 Other disorders of bilirubin metabolism; R74.01 Elevation of levels of liver transaminase levels; I10 Essential (primary) hypertension

== ENCOUNTER 2022-09-07 18:28 | Inpatient (IN) | payer SELFPAY ==
[~2022-09-07] VITALS: Ht 185.4 cm; Wt 85.0 kg
[2022-09-07 19:04] VITALS: BP 111/64
[2022-09-07 19:15] VITALS: BP 119/63
[2022-09-07 19:30] VITALS: BP 120/64
[2022-09-07 20:52] LABS: BASO% 0.1 % (0-3); EOS% 7.4 % (0-8); HEMATOCRIT 25.8 % (39.0-50.0); HEMOGLOBIN 9.5 g/dl (14.0-18.0); IMMATURE GRANULOCYTES 3.3 % (0.0-5.0); LYMPH% 11.3 % (15-41); MEAN CELL VOLUME 100.4 fL CALC (80.0-100.0); MEAN CORPUSCULAR HGB CONC 36.8 g/dL CAL (32.0-36.0); MONO% 9.8 % (2-13); NEUT# 13.07 thou/uL (1.82-7.42); NEUT% 68.1 % (42-76); RED BLOOD COUNT 2.57 mill/uL (4.70-6.10)
[2022-09-07 21:07] LABS: ALBUMIN 2.8 g/dL (3.2-5.0); ALKALINE PHOSPHATASE 117 u/l (38-126); AMYLASE 106 u/l (30-110); ANION GAP 8 (6-22 (CALC)); BILIRUBIN, TOTAL 14.9 mg/dL (0.0-1.4); BUN 34 mg/dL (9-20); BUN/CREATININE RATIO 22 (12-20 (CALC)); CARBON DIOXIDE 21 mmol/l (22-30); CHLORIDE 105 mmol/l (95-108); CREATININE 1.5 mg/dL (0.7-1.3); GFR FOR AFR.AMER. > 60 ML/MIN (>=60 (CALC)); GFR OTHER RACES 52 ML/MIN (>=60 (CALC)); LIPASE 375 u/l (23-300); POTASSIUM 3.1 mmol/l (3.5-5.1); SGOT/AST 102 u/l (17-59); SODIUM 131 mmol/l (137-146); TOTAL PROTEIN 7.5 g/dL (6.3-8.2)
[2022-09-07 21:08] LABS: INTERNATIONAL NORMALIZED RATIO 2.1 RATIO (0.7-1.3); PROTHROMBIN TIME 20.5 SECONDS (9.0-12.5)
[2022-09-08] VITALS (12 sets, daily range): BP systolic 89–120; BP diastolic 45–68
[2022-09-08] MEDS ORDERED: FAMOTIDINE20 M1 PO (03:23)
[2022-09-08 09:46] LABS: BASO% 0.1 % (0-3); EOS% 12.5 % (0-8); HEMOGLOBIN 8.1 g/dl (14.0-18.0); IMMATURE GRANULOCYTES 2.5 % (0.0-5.0); LYMPH% 15.7 % (15-41); MEAN CELL VOLUME 100.5 fL CALC (80.0-100.0); MEAN CORPUSCULAR HGB CONC 36.8 g/dL CAL (32.0-36.0); MONO% 10.6 % (2-13); NEUT# 8.29 thou/uL (1.82-7.42); NEUT% 58.6 % (42-76); RED BLOOD COUNT 2.19 mill/uL (4.70-6.10); RED CELL DISTRI WIDTH 16.7 % (11.5-15.5)
[2022-09-08 10:16] LABS: ALKALINE PHOSPHATASE 85 u/l (38-126); ANION GAP 7 (6-22 (CALC)); BILIRUBIN, TOTAL 12.5 mg/dL (0.0-1.4); BUN 31 mg/dL (9-20); BUN/CREATININE RATIO 22 (12-20 (CALC)); CARBON DIOXIDE 20 mmol/l (22-30); CHLORIDE 106 mmol/l (95-108); CREATININE 1.4 mg/dL (0.7-1.3); GFR FOR AFR.AMER. > 60 ML/MIN (>=60 (CALC)); GFR OTHER RACES 56 ML/MIN (>=60 (CALC)); POTASSIUM 3.1 mmol/l (3.5-5.1); SGOT/AST 80 u/l (17-59); SODIUM 129 mmol/l (137-146)
[2022-09-08 10:39] LABS: ALBUMIN 2.1 g/dL (3.2-5.0)
[2022-09-09 00:13] VITALS: BP 116/73
[2022-09-09 04:18] VITALS: BP 106/55
[2022-09-09 06:31] LABS: BASO% 0.2 % (0-3); EOS% 13.6 % (0-8); HEMATOCRIT 21.7 % (39.0-50.0); HEMOGLOBIN 8.5 g/dl (14.0-18.0); IMMATURE GRANULOCYTES 2.1 % (0.0-5.0); LYMPH% 15.1 % (15-41); MEAN CELL VOLUME 100.9 fL CALC (80.0-100.0); MEAN CORPUSCULAR HGB 39.5 pG CALC (26.0-32.0); MEAN CORPUSCULAR HGB CONC 39.2 g/dL CAL (32.0-36.0); MONO% 9.6 % (2-13); NEUT# 8.92 thou/uL (1.82-7.42); NEUT% 59.4 % (42-76); RED BLOOD COUNT 2.15 mill/uL (4.70-6.10); RED CELL DISTRI WIDTH 17.3 % (11.5-15.5)
[2022-09-09 06:53] LABS: ALBUMIN 2.3 g/dL (3.2-5.0); ALKALINE PHOSPHATASE 89 u/l (38-126); ANION GAP 4 (6-22 (CALC)); BILIRUBIN, TOTAL 11.4 mg/dL (0.0-1.4); BUN 26 mg/dL (9-20); BUN/CREATININE RATIO 19 (12-20 (CALC)); CARBON DIOXIDE 19 mmol/l (22-30); CHLORIDE 109 mmol/l (95-108); CREATININE 1.4 mg/dL (0.7-1.3); GFR FOR AFR.AMER. > 60 ML/MIN (>=60 (CALC)); GFR OTHER RACES 56 ML/MIN (>=60 (CALC)); POTASSIUM 3.4 mmol/l (3.5-5.1); SGOT/AST 87 u/l (17-59); SODIUM 128 mmol/l (137-146); TOTAL PROTEIN 6.4 g/dL (6.3-8.2)
[2022-09-09 07:12] VITALS: BP 105/55
[2022-09-09 10:44] VITALS: BP 106/59
[2022-09-09 15:41] VITALS: BP 107/57
[2022-09-09 19:15] VITALS: BP 94/42
[2022-09-10] VITALS (9 sets, daily range): BP systolic 92–129; BP diastolic 48–75
[2022-09-10 06:32] LABS: INTERNATIONAL NORMALIZED RATIO 1.9 RATIO (0.7-1.3); PROTHROMBIN TIME 18.3 SECONDS (9.0-12.5)
[2022-09-10 06:38] LABS: BASO% 0.6 % (0-3); EOS% 13.4 % (0-8); HEMATOCRIT 21.7 % (39.0-50.0); HEMOGLOBIN 7.9 g/dl (14.0-18.0); IMMATURE GRANULOCYTES 1.9 % (0.0-5.0); LYMPH% 16.6 % (15-41); MEAN CELL VOLUME 103.3 fL CALC (80.0-100.0); MEAN CORPUSCULAR HGB 37.6 pG CALC (26.0-32.0); MEAN CORPUSCULAR HGB CONC 36.4 g/dL CAL (32.0-36.0); MONO% 10.2 % (2-13); NEUT% 57.3 % (42-76); RED BLOOD COUNT 2.1 mill/uL (4.70-6.10); RED CELL DISTRI WIDTH 16.8 % (11.5-15.5)
[2022-09-10 06:46] LABS: ALBUMIN 2.4 g/dL (3.2-5.0); ALKALINE PHOSPHATASE 79 u/l (38-126); ANION GAP 7 (6-22 (CALC)); BUN 17 mg/dL (9-20); BUN/CREATININE RATIO 16 (12-20 (CALC)); CARBON DIOXIDE 18 mmol/l (22-30); CHLORIDE 109 mmol/l (95-108); CREATININE 1.1 mg/dL (0.7-1.3); GFR FOR AFR.AMER. > 60 ML/MIN (>=60 (CALC)); GFR OTHER RACES > 60 ML/MIN (>=60 (CALC)); POTASSIUM 3.1 mmol/l (3.5-5.1); SGOT/AST 89 u/l (17-59); SODIUM 131 mmol/l (137-146); TOTAL PROTEIN 6.6 g/dL (6.3-8.2)
[2022-09-11 04:30] VITALS: BP 120/68
[2022-09-11 06:07] LABS: ALBUMIN 2.3 g/dL (3.2-5.0); ALKALINE PHOSPHATASE 81 u/l (38-126); ANION GAP 6 (6-22 (CALC)); BILIRUBIN, TOTAL 9.7 mg/dL (0.0-1.4); BUN 11 mg/dL (9-20); BUN/CREATININE RATIO 13 (12-20 (CALC)); CARBON DIOXIDE 17 mmol/l (22-30); CHLORIDE 113 mmol/l (95-108); CREATININE 0.8 mg/dL (0.7-1.3); GFR FOR AFR.AMER. > 60 ML/MIN (>=60 (CALC)); GFR OTHER RACES > 60 ML/MIN (>=60 (CALC)); POTASSIUM 3.4 mmol/l (3.5-5.1); SGOT/AST 101 u/l (17-59); SODIUM 132 mmol/l (137-146); TOTAL PROTEIN 6.3 g/dL (6.3-8.2)
[2022-09-11 06:12] LABS: BASO% 0.2 % (0-3); EOS% 11.3 % (0-8); HEMATOCRIT 21.5 % (39.0-50.0); HEMOGLOBIN 7.6 g/dl (14.0-18.0); IMMATURE GRANULOCYTES 1.2 % (0.0-5.0); LYMPH% 16.5 % (15-41); MEAN CELL VOLUME 104.4 fL CALC (80.0-100.0); MEAN CORPUSCULAR HGB 36.9 pG CALC (26.0-32.0); MEAN CORPUSCULAR HGB CONC 35.3 g/dL CAL (32.0-36.0); MONO% 9.5 % (2-13); NEUT# 6.65 thou/uL (1.82-7.42); NEUT% 61.3 % (42-76); RED BLOOD COUNT 2.06 mill/uL (4.70-6.10); RED CELL DISTRI WIDTH 16.4 % (11.5-15.5)
[2022-09-11 06:53] VITALS: BP 118/70
[2022-09-11 10:24] VITALS: BP 109/65
[2022-09-11] MEDS ORDERED: LASIX 20 MG TAB20 MG PO (10:33)
[2022-09-11] MEDS ORDERED: ALDACTONE25 MG PO (10:33)
[2022-09-11] MEDS ORDERED: AMOX/K CLAV875 M1 PO (10:35)
[2022-09-11] MEDS ORDERED: TRAMADOL HCL50 MG PO (10:36)
[2022-09-12] MEDS ORDERED: POTASSIUM CHLO20 ME1 PO (00:48)
[2022-09-12] MEDS ORDERED: ANUCORT-HC25 MG RE (00:48)
== END 2022-09-11 13:09 | disposition home or self-care (01) | DRG 434 ==
LOC: ED 18:28 → ED-I 09-08 00:30 → ED 09-08 00:51 → ED-I 09-08 00:52 → MS2 09-08 06:20
PROVIDERS: Emergency Medicine; Nurse Practitioner Family; ADMIT Internal Medicine; ATTEND Internal Medicine
PROC: 0W9G3ZZ Drainage of Peritoneal Cavity, Percutaneous Approach (ICD-10-PCS; principal; 2022-09-10)
DX: K70.31 Alcoholic cirrhosis of liver with ascites (principal); K80.20 Calculus of gallbladder without cholecystitis without obstruction; F10.10 Alcohol abuse, uncomplicated; I10 Essential (primary) hypertension; R16.2 Hepatomegaly with splenomegaly, not elsewhere classified; F17.210 Nicotine dependence, cigarettes, uncomplicated; Z20.822 Contact with and (suspected) exposure to COVID-19
CPT/HCPCS: A9537; J2805; Q9967

== ENCOUNTER 2022-09-11 23:19 | Emergency (ER) | payer SELFPAY ==
[~2022-09-11] VITALS: Ht 185.4 cm; Wt 200.0 kg
[~2022-09-11 23:19] MED LIST changes: +ALDACTONE25 MG PO; +AMOX/K CLAV875 M1 PO; +FAMOTIDINE20 M1 PO; +LASIX 20 MG TAB20 MG PO; +TRAMADOL HCL50 MG PO
[2022-09-11 23:31] VITALS: BP 137/75
[2022-09-11 23:46] VITALS: BP 131/77
[2022-09-12] VITALS: BP 137/79
[2022-09-12 00:06] LABS: BASO% 0.3 % (0-3); EOS% 9.1 % (0-8); HEMATOCRIT 22.6 % (39.0-50.0); HEMOGLOBIN 7.9 g/dl (14.0-18.0); IMMATURE GRANULOCYTES 0.9 % (0.0-5.0); LYMPH% 16.5 % (15-41); MEAN CELL VOLUME 106.1 fL CALC (80.0-100.0); MEAN CORPUSCULAR HGB 37.1 pG CALC (26.0-32.0); MONO% 9.2 % (2-13); NEUT# 8.44 thou/uL (1.82-7.42); RED BLOOD COUNT 2.13 mill/uL (4.70-6.10); RED CELL DISTRI WIDTH 16.2 % (11.5-15.5)
[2022-09-12 00:15] VITALS: BP 125/77
[2022-09-12 00:18] LABS: ACT PARTIAL THROMBO TIME 30.9 SECONDS (20.0-32.5); ALKALINE PHOSPHATASE 103 u/l (38-126); ANION GAP 10 (6-22 (CALC)); BILIRUBIN, TOTAL 10.7 mg/dL (0.0-1.4); BUN 9 mg/dL (9-20); BUN/CREATININE RATIO 10 (12-20 (CALC)); CARBON DIOXIDE 15 mmol/l (22-30); CHLORIDE 113 mmol/l (95-108); CREATININE 0.9 mg/dL (0.7-1.3); ETHYL ALCOHOL 0 mg/dl (0-30); GFR FOR AFR.AMER. > 60 ML/MIN (>=60 (CALC)); GFR OTHER RACES > 60 ML/MIN (>=60 (CALC)); INTERNATIONAL NORMALIZED RATIO 1.9 RATIO (0.7-1.3); PROTHROMBIN TIME 18.6 SECONDS (9.0-12.5); SGOT/AST 106 u/l (17-59); SODIUM 135 mmol/l (137-146)
[2022-09-12 00:20] LABS: ALBUMIN 2.9 g/dL (3.2-5.0); TOTAL PROTEIN 7.9 g/dL (6.3-8.2)
[2022-09-12 00:30] VITALS: BP 121/72
[2022-09-12] MEDS ORDERED: ANUCORT-HC25 MG RE (00:48)
[2022-09-12] MEDS ORDERED: POTASSIUM CHLO20 ME1 PO (00:48)
[2022-09-12 00:55] VITALS: BP 121/72
== END 2022-09-12 01:10 | disposition home or self-care (01) | DRG 395 ==
LOC: ED 23:19
PROVIDERS: Family Medicine
DX: K64.8 Other hemorrhoids (principal); E87.6 Hypokalemia; K70.31 Alcoholic cirrhosis of liver with ascites; K72.10 Chronic hepatic failure without coma; I10 Essential (primary) hypertension; F17.200 Nicotine dependence, unspecified, uncomplicated

== ENCOUNTER 2023-02-11 08:55 | Emergency (ER) | payer OTHER ==
[~2023-02-11] VITALS: Ht 185.4 cm; Wt 89.0 kg
[~2023-02-11 08:55] MED LIST changes: +ANUCORT-HC25 MG RE; +POTASSIUM CHLO20 ME1 PO
[2023-02-11 09:08] VITALS: BP 133/76
[2023-02-11 09:15] VITALS: BP 134/72
[2023-02-11 09:30] VITALS: BP 123/71
[2023-02-11 11:23] VITALS: BP 123/71
== END 2023-02-11 11:24 | disposition home or self-care (01) | DRG 434 ==
LOC: ED 08:55
DX: K70.30 Alcoholic cirrhosis of liver without ascites (principal); I10 Essential (primary) hypertension

== ENCOUNTER 2023-02-15 13:38 | Emergency (ER) | payer OTHER ==
[2023-02-15] VITALS (18 sets, daily range): BP systolic 107–131; BP diastolic 61–76
[~2023-02-15] VITALS: Ht 185.4 cm; Wt 88.7 kg
[2023-02-15 15:02] LABS: EOS% 0.6 % (0-8); HEMOGLOBIN 7.2 g/dl (14.0-18.0); IMMATURE GRANULOCYTES 2.2 % (0.0-5.0); LYMPH% 3.5 % (15-41); MEAN CORPUSCULAR HGB 36.7 pG CALC (26.0-32.0); NEUT# 11.59 thou/uL (1.82-7.42); NEUT% 80.7 % (42-76); RED BLOOD COUNT 1.96 mill/uL (4.70-6.10); RED CELL DISTRI WIDTH 17.1 % (11.5-15.5)
[2023-02-15 15:10] LABS: URINE BLOOD DIPSTICK MODERATE (NEGATIVE); URINE GLUCOSE - DIPSTICK 100 mg/dL (NEGATIVE); URINE KETONE 15 mg/dL (NEGATIVE); URINE LEUK ESTERASE TRACE (NEGATIVE); URINE PH 6.5 (4.5-8.0); URINE PROTEIN - DIPSTICK 100 mg/dL (NEG-TRACE); URINE UROBILINOGEN - DIPSTICK >=8.0 E.U./dL (0.2)
[2023-02-15 15:11] LABS: URINE COLOR DK. YELLOW; URINE NITRITE - DIPSTICK POSITIVE (Negative)
[2023-02-15 15:14] LABS: ALBUMIN 2.6 g/dL (3.2-5.0); POTASSIUM 2.5 mmol/l (3.5-5.1)
[2023-02-15 15:15] LABS: URINE CASTS MANY lpf (NONE-RARE); URINE HYALINE CAST FEW lpf (NONE-RARE); URINE RBC 0-2 RBC/hpf (0-5); URINE SQUAMOUS EPITHELIAL CELL MANY EPI/hpf (0-FEW); URINE WBC 0-2 WBC/hpf (0-5)
[2023-02-15 15:23] LABS: HEMATOCRIT 18.8 % (39.0-50.0); MEAN CELL VOLUME 95.9 fL CALC (80.0-100.0); MEAN CORPUSCULAR HGB CONC 38.3 g/dL CAL (32.0-36.0)
[2023-02-15 15:24] LABS: BILIRUBIN, TOTAL 34.2 mg/dL (0.2-1.3)
[2023-02-15 16:32] LABS: INTERNATIONAL NORMALIZED RATIO 5.2 RATIO (0.7-1.3); PROTHROMBIN TIME 48.4 SECONDS (9.0-12.5)
== END 2023-02-15 18:26 | disposition short-term general hospital (02) | DRG 872 ==
LOC: ED 13:38
PROVIDERS: Family Medicine
PROC: 05HM33Z Insertion of Infusion Device into Right Internal Jugular Vein, Percutaneous Approach (ICD-10-PCS; principal; 2023-02-15)
PROC: 30243N1 Transfusion of Nonautologous Red Blood Cells into Central Vein, Percutaneous Approach (ICD-10-PCS; 2023-02-15)
DX: A41.9 Sepsis, unspecified organism (principal); D68.4 Acquired coagulation factor deficiency; N17.9 Acute kidney failure, unspecified; N39.0 Urinary tract infection, site not specified; D64.9 Anemia, unspecified; I10 Essential (primary) hypertension; R65.20 Severe sepsis without septic shock; E87.6 Hypokalemia; K70.30 Alcoholic cirrhosis of liver without ascites; F10.10 Alcohol abuse, uncomplicated; Z20.822 Contact with and (suspected) exposure to COVID-19
CPT/HCPCS: J3475; P9016

== ENCOUNTER 2023-02-23 17:11 | Emergency (ER) | payer OTHER ==
[~2023-02-23] VITALS: Ht 185.4 cm; Wt 86.1 kg
[2023-02-23 18:00] VITALS: BP 130/72
[2023-02-23 18:15] VITALS: BP 138/80
[2023-02-23 18:30] VITALS: BP 129/72
[2023-02-23] MEDS ORDERED: GENERLAC10 GM/15 M (18:33)
[2023-02-23] MEDS ORDERED: MIDODRINE10 MG PO (18:36)
[2023-02-23] MEDS ORDERED: PENTOXIFYLLI400 M1 PO (18:37)
[2023-02-23] MEDS ORDERED: OXYCODONE5 M1 PO (18:39)
[2023-02-23 18:45] VITALS: BP 128/77
[2023-02-23] MEDS ORDERED: LASIX 20 MG TAB20 MG PO (18:58)
[2023-02-23] MEDS ORDERED: K-TAB20 MEQ PO (18:58)
[2023-02-23 19:00] VITALS: BP 127/68
[2023-02-23 19:01] VITALS: BP 127/68
== END 2023-02-23 19:23 | disposition home or self-care (01) | DRG 921 ==
LOC: ED 17:11
DX: L76.32 Postprocedural hematoma of skin and subcutaneous tissue following other procedure (principal); R60.0 Localized edema; K70.30 Alcoholic cirrhosis of liver without ascites; F10.10 Alcohol abuse, uncomplicated; I10 Essential (primary) hypertension; F17.210 Nicotine dependence, cigarettes, uncomplicated; Y83.8 Other surgical procedures as the cause of abnormal reaction of the patient, or of later complication, without mention of misadventure at the time of the procedure

== ENCOUNTER 2023-03-06 20:07 | Inpatient (IN) | payer OTHER ==
[~2023-03-06] VITALS: Ht 185.4 cm; Wt 100.0 kg
[2023-03-06] VITALS (8 sets, daily range): BP systolic 126–141; BP diastolic 54–78
[~2023-03-06 20:07] MED LIST changes: +GENERLAC10 GM/15 M; +K-TAB20 MEQ PO; +MIDODRINE10 MG PO; +OXYCODONE5 M1 PO; +PENTOXIFYLLI400 M1 PO
[2023-03-06 21:21] LABS: BASO% 0.2 % (0-3); EOS% 4.9 % (0-8); IMMATURE GRANULOCYTES 0.3 % (0.0-5.0); LYMPH% 5.9 % (15-41); MEAN CORPUSCULAR HGB 35.7 pG CALC (26.0-32.0); MEAN CORPUSCULAR HGB CONC 34.3 g/dL CAL (32.0-36.0); MONO% 9.6 % (2-13); NEUT% 79.1 % (42-76); RED BLOOD COUNT 1.71 mill/uL (4.70-6.10); RED CELL DISTRI WIDTH 21.1 % (11.5-15.5)
[2023-03-06 21:25] LABS: HEMOGLOBIN 6.1 g/dl (14.0-18.0); MEAN CELL VOLUME 104.1 fL CALC (80.0-100.0)
[2023-03-06 21:26] LABS: HEMATOCRIT 17.8 % (39.0-50.0)
[2023-03-06 21:34] LABS: CREATININE 4.5 mg/dL (0.7-1.3); TOTAL PROTEIN 7.7 g/dL (6.3-8.2)
[2023-03-06 21:41] LABS: ALBUMIN 3.2 g/dL (3.2-5.0); BILIRUBIN, TOTAL 13.1 mg/dL (0.2-1.3); POTASSIUM 2.1 mmol/l (3.5-5.1)
[2023-03-06 21:44] LABS: INTERNATIONAL NORMALIZED RATIO 1.9 RATIO (0.7-1.3)
[2023-03-07] VITALS (100 sets, daily range): BP systolic 70–163; BP diastolic 40–128
[2023-03-07 08:12] LABS: URINE BILIRUBIN - DIPSTICK NEGATIVE (NEGATIVE); URINE BLOOD DIPSTICK LARGE (NEGATIVE); URINE COLOR YELLOW; URINE GLUCOSE - DIPSTICK NEGATIVE (NEGATIVE); URINE KETONE NEGATIVE (NEGATIVE); URINE PH 7.5 (4.5-8.0); URINE PROTEIN - DIPSTICK TRACE mg/dL (NEG-TRACE); URINE SPECIFIC GRAVITY <=1.005; URINE UROBILINOGEN - DIPSTICK 0.2 E.U./dL (0.2)
[2023-03-07 08:18] LABS: URINE LEUK ESTERASE SMALL (NEGATIVE); URINE NITRITE - DIPSTICK NEGATIVE (Negative)
[2023-03-07 08:19] LABS: URINE BACTERIA FEW hpf; URINE WBC 0-2 WBC/hpf (0-5)
[2023-03-07 10:50] LABS: MEAN CORPUSCULAR HGB 34.5 pG CALC (26.0-32.0); MEAN CORPUSCULAR HGB CONC 35.4 g/dL CAL (32.0-36.0); RED CELL DISTRI WIDTH 21.7 % (11.5-15.5)
[2023-03-07 10:56] LABS: MEAN CELL VOLUME 97.5 fL CALC (80.0-100.0)
[2023-03-07 10:57] LABS: HEMATOCRIT 19.5 % (39.0-50.0); HEMOGLOBIN 6.9 g/dl (14.0-18.0)
[2023-03-07 11:02] LABS: BILIRUBIN, TOTAL 13.9 mg/dL (0.2-1.3); CREATININE 3.8 mg/dL (0.7-1.3)
[2023-03-07 11:04] LABS: ALBUMIN 2.4 g/dL (3.2-5.0); POTASSIUM 2.3 mmol/l (3.5-5.1); TOTAL PROTEIN 6.1 g/dL (6.3-8.2)
[2023-03-07 19:13] LABS: HEMATOCRIT 22.2 % (39.0-50.0); HEMOGLOBIN 7.6 g/dl (14.0-18.0); MEAN CELL VOLUME 97.8 fL CALC (80.0-100.0); MEAN CORPUSCULAR HGB 33.5 pG CALC (26.0-32.0); MEAN CORPUSCULAR HGB CONC 34.2 g/dL CAL (32.0-36.0); RED BLOOD COUNT 2.27 mill/uL (4.70-6.10); RED CELL DISTRI WIDTH 21.8 % (11.5-15.5)
[2023-03-07 19:23] LABS: CREATININE 3.8 mg/dL (0.7-1.3); POTASSIUM 2.6 mmol/l (3.5-5.1)
[2023-03-08] VITALS (27 sets, daily range): BP systolic 125–166; BP diastolic 71–102
[2023-03-08 05:26] LABS: HEMOGLOBIN 7.3 g/dl (14.0-18.0); MEAN CELL VOLUME 96.3 fL CALC (80.0-100.0); MEAN CORPUSCULAR HGB 33.5 pG CALC (26.0-32.0); MEAN CORPUSCULAR HGB CONC 34.8 g/dL CAL (32.0-36.0); RED BLOOD COUNT 2.18 mill/uL (4.70-6.10); RED CELL DISTRI WIDTH 21.9 % (11.5-15.5)
[2023-03-08 05:43] LABS: ALBUMIN 2.4 g/dL (3.2-5.0); BILIRUBIN, TOTAL 12.6 mg/dL (0.2-1.3); CREATININE 3.7 mg/dL (0.7-1.3); MAGNESIUM 1.8 mg/dL (1.6-2.3); POTASSIUM 2.5 mmol/l (3.5-5.1); TOTAL PROTEIN 6.1 g/dL (6.3-8.2)
[2023-03-08 13:52] LABS: CREATININE 3.6 mg/dL (0.7-1.3)
[2023-03-09] VITALS (30 sets, daily range): BP systolic 107–143; BP diastolic 72–102
[2023-03-09 04:50] LABS: HEMATOCRIT 20.5 % (39.0-50.0); MEAN CELL VOLUME 96.7 fL CALC (80.0-100.0); MEAN CORPUSCULAR HGB CONC 34.1 g/dL CAL (32.0-36.0); RED BLOOD COUNT 2.12 mill/uL (4.70-6.10); RED CELL DISTRI WIDTH 22.1 % (11.5-15.5)
[2023-03-09 05:04] LABS: ALBUMIN 2.1 g/dL (3.2-5.0); BILIRUBIN, TOTAL 7.8 mg/dL (0.2-1.3); CREATININE 3.4 mg/dL (0.7-1.3); MAGNESIUM 1.6 mg/dL (1.6-2.3); POTASSIUM 2.7 mmol/l (3.5-5.1); TOTAL PROTEIN 5.6 g/dL (6.3-8.2)
[2023-03-10] VITALS (13 sets, daily range): BP systolic 104–143; BP diastolic 45–84
[2023-03-10 05:25] LABS: HEMATOCRIT 24.2 % (39.0-50.0); HEMOGLOBIN 8.3 g/dl (14.0-18.0); MEAN CELL VOLUME 96.8 fL CALC (80.0-100.0); MEAN CORPUSCULAR HGB 33.2 pG CALC (26.0-32.0); MEAN CORPUSCULAR HGB CONC 34.3 g/dL CAL (32.0-36.0); RED BLOOD COUNT 2.5 mill/uL (4.70-6.10); RED CELL DISTRI WIDTH 21.8 % (11.5-15.5)
[2023-03-10 06:01] LABS: ALBUMIN 2.2 g/dL (3.2-5.0); BILIRUBIN, TOTAL 7.6 mg/dL (0.2-1.3); CREATININE 3.4 mg/dL (0.7-1.3); MAGNESIUM 1.5 mg/dL (1.6-2.3); TOTAL PROTEIN 5.8 g/dL (6.3-8.2)
[2023-03-10 06:04] LABS: POTASSIUM 3.5 mmol/l (3.5-5.1)
[2023-03-10] MEDS ORDERED: SODIUM BICAR650 MG PO (10:26)
[2023-03-10] MEDS ORDERED: LASIX 20 MG TAB20 MG PO (10:26)
[2023-03-10] MEDS ORDERED: XIFAXAN550 MG PO (10:27)
[2023-03-10] MEDS ORDERED: PANTOPRAZOLE SO40 M1 PO (10:27)
[2023-03-10] MEDS ORDERED: ALDACTONE50 MG PO (10:28)
[2023-03-10] MEDS ORDERED: GENERLAC10 GM/15 M PO (10:29)
== END 2023-03-10 12:50 | DRG 441 ==
LOC: ED 20:07 → ED-I 20:43 → ED 23:55 → ICU 23:56
PROVIDERS: Emergency Medicine; ADMIT Internal Medicine; ATTEND Internal Medicine
PROC: 02HV33Z Insertion of Infusion Device into Superior Vena Cava, Percutaneous Approach (ICD-10-PCS; principal; 2023-03-06)
PROC: 30243N1 Transfusion of Nonautologous Red Blood Cells into Central Vein, Percutaneous Approach (ICD-10-PCS; 2023-03-07)
PROC: 30243N1 Transfusion of Nonautologous Red Blood Cells into Central Vein, Percutaneous Approach (ICD-10-PCS; 2023-03-07)
PROC: 30243N1 Transfusion of Nonautologous Red Blood Cells into Central Vein, Percutaneous Approach (ICD-10-PCS; 2023-03-07)
PROC: 0T9B70Z Drainage of Bladder with Drainage Device, Via Natural or Artificial Opening (ICD-10-PCS; 2023-03-07)
PROC: 30243N1 Transfusion of Nonautologous Red Blood Cells into Central Vein, Percutaneous Approach (ICD-10-PCS; 2023-03-09)
DX: K76.82 Hepatic encephalopathy (principal); K76.7 Hepatorenal syndrome; E72.20 Disorder of urea cycle metabolism, unspecified; N17.9 Acute kidney failure, unspecified; K70.31 Alcoholic cirrhosis of liver with ascites; F10.20 Alcohol dependence, uncomplicated; E87.6 Hypokalemia; I12.9 Hypertensive chronic kidney disease with stage 1 through stage 4 chronic kidney disease, or unspecified chronic kidney disease; N18.9 Chronic kidney disease, unspecified; F17.210 Nicotine dependence, cigarettes, uncomplicated; K72.10 Chronic hepatic failure without coma; D63.8 Anemia in other chronic diseases classified elsewhere; E83.42 Hypomagnesemia; Z78.1 Physical restraint status; Z20.822 Contact with and (suspected) exposure to COVID-19
CPT/HCPCS: J2060; J3475; P9016; S0166

== ENCOUNTER 2023-03-13 10:36 | Inpatient (IN) | payer OTHER ==
[~2023-03-13] VITALS: Ht 185.4 cm; Wt 103.1 kg
[2023-03-13] VITALS (42 sets, daily range): BP systolic 112–149; BP diastolic 65–97
[~2023-03-13 10:36] MED LIST changes: +ALDACTONE50 MG PO; +GENERLAC10 GM/15 M PO; +PANTOPRAZOLE SO40 M1 PO; +SODIUM BICAR650 MG PO; +XIFAXAN550 MG PO
[2023-03-13 11:28] LABS: BASO% 0.3 % (0-3); EOS% 19.5 % (0-8); HEMATOCRIT 24.1 % (39.0-50.0); HEMOGLOBIN 8.6 g/dl (14.0-18.0); IMMATURE GRANULOCYTES 0.2 % (0.0-5.0); LYMPH% 11.6 % (15-41); MEAN CELL VOLUME 94.9 fL CALC (80.0-100.0); MEAN CORPUSCULAR HGB 33.9 pG CALC (26.0-32.0); MEAN CORPUSCULAR HGB CONC 35.7 g/dL CAL (32.0-36.0); MONO% 9.9 % (2-13); NEUT# 7.72 thou/uL (1.82-7.42); NEUT% 58.5 % (42-76); RED BLOOD COUNT 2.54 mill/uL (4.70-6.10); RED CELL DISTRI WIDTH 19.2 % (11.5-15.5)
[2023-03-13 11:41] LABS: ALBUMIN 2.5 g/dL (3.2-5.0); CREATININE 4.2 mg/dL (0.7-1.3); TOTAL PROTEIN 6.2 g/dL (6.3-8.2)
[2023-03-14] VITALS (22 sets, daily range): BP systolic 99–129; BP diastolic 51–74
[2023-03-15] VITALS (16 sets, daily range): BP systolic 116–136; BP diastolic 55–74
[2023-03-15 05:34] LABS: BASO% 0.3 % (0-3); EOS% 13.1 % (0-8); HEMATOCRIT 21.9 % (39.0-50.0); HEMOGLOBIN 7.5 g/dl (14.0-18.0); IMMATURE GRANULOCYTES 0.2 % (0.0-5.0); LYMPH% 13.4 % (15-41); MEAN CELL VOLUME 95.6 fL CALC (80.0-100.0); MEAN CORPUSCULAR HGB 32.8 pG CALC (26.0-32.0); MEAN CORPUSCULAR HGB CONC 34.2 g/dL CAL (32.0-36.0); MONO% 11.7 % (2-13); NEUT# 8.2 thou/uL (1.82-7.42); NEUT% 61.3 % (42-76); RED BLOOD COUNT 2.29 mill/uL (4.70-6.10); RED CELL DISTRI WIDTH 19.5 % (11.5-15.5)
[2023-03-15 05:44] LABS: ALBUMIN 2.3 g/dL (3.2-5.0); BILIRUBIN, TOTAL 5.7 mg/dL (0.2-1.3); CREATININE 3.3 mg/dL (0.7-1.3); POTASSIUM 3.3 mmol/l (3.5-5.1); TOTAL PROTEIN 5.9 g/dL (6.3-8.2)
[2023-03-15 05:50] LABS: INTERNATIONAL NORMALIZED RATIO 1.9 RATIO (0.7-1.3); PROTHROMBIN TIME 18.7 SECONDS (9.0-12.5)
[2023-03-15] MEDS ORDERED: ALDACTONE50 MG PO (10:56)
== END 2023-03-15 16:58 | disposition hospice, home (50) | DRG 441 ==
LOC: ED 10:36 → ED-I 10:52 → ED 10:52 → ED-I 14:25 → ED 18:10 → ICU 18:11
PROVIDERS: Family Medicine; Internal Medicine; ADMIT Internal Medicine; ATTEND Internal Medicine
DX: K76.82 Hepatic encephalopathy (principal); K76.7 Hepatorenal syndrome; K70.31 Alcoholic cirrhosis of liver with ascites; F10.10 Alcohol abuse, uncomplicated; K72.10 Chronic hepatic failure without coma; K21.9 Gastro-esophageal reflux disease without esophagitis; F17.210 Nicotine dependence, cigarettes, uncomplicated; Z51.5 Encounter for palliative care; Z66 Do not resuscitate